=== PATIENT | female | born 1975 | race Caucasian/White ===

== ENCOUNTER 2016-12-18 14:18 | Outpatient (CLI) ==
--- NOTE | 2016-12-18 15:48 | DI ---
EXAM: Chest two view, frontal and lateral views. HISTORY: Pleuritic chest pain. Smoking history. COMPARISON: 05/03/2014. FINDINGS: The heart size is normal. There is no pulmonary vascular congestion. The lungs are doug r save for calcified granulomatous changes. No pleural effusion or pneumothorax is seen. No acute osseous abnormality identified. IMPRESSION: No acute cardiopulmonary process.
[2016-12-18 17:41] LABS: FLU INTERNAL QC INTERNAL QC VALID; RAPID FLU A NEGATIVE (NEGATIVE); RAPID FLU B NEGATIVE (NEGATIVE)
== END 2016-12-18 14:19 | disposition home or self-care (01) ==
LOC: LAB 14:18
PROVIDERS: ATTEND Nurse Practitioner Family
DX: R52 Pain, unspecified (principal); R50.9 Fever, unspecified; R07.81 Pleurodynia; F17.200 Nicotine dependence, unspecified, uncomplicated
CPT/HCPCS: 87651; 87804; 87880